=== PATIENT | female | born 1970 | race Caucasian/White ===

== ENCOUNTER 2017-03-12 09:00 | Observation (INO) ==
[2017-03-12] MEDS ORDERED: Benzonatate 100 MG CAPSULE PO STA (09:26)
--- NOTE | 2017-03-12 09:26 | Emergency Department Note ---
Disposition Clinical Impression: Acute respiratory failure Qualifiers: Respiratory failure complication: hypoxia Qualified Code(s): J96.01 - Acute respiratory failure with hypoxia Pneumonia Qualifiers: Pneumonia type: due to unspecified organism Laterality: unspecified laterality Lung location: unspecified part of lung Qualified Code(s): J18.9 - Pneumonia, unspecified organism Disposition: Admitted As Inpatient Condition: Good Referrals: Gerard Guy DO [Primary Care Provider] - Forms: ED Satisfaction Letter Time of Disposition: 10:50 (Dr Pinto) URI/Sore Throat HPI - General Chief Complaint: ED Upper Respiratory Infection Stated Complaint: prod cough, fever, chillsl, sweats, sore throat Time Seen by Provider: 03/12/17 09:10 Source: patient Mode of arrival: ambulatory Limitations: no limitations Nursing Notes Reviewed: Yes Vital Signs Reviewed: Yes - History of Present Illness HPI Narrative: 46-year-old female presents to use secondary to increasing shortness of breath for last 3 days. The patient was diagnosed with viral illness and negative for influenza approximately 6 days ago by PCP where she was sent home with oral prednisone. During that time she has been taking [id number] cough and cold medication without improvement. The patient states she has intermittent fever but denies any associated headache, abdominal pain, changes in bowel or bladder habits. Pt Subjective Complaint: fever, cough, nasal congestion Onset (ago): day(s) (8) Duration: gradually worsening Severity: moderate Improves with: other (Improvement with cough and cold medication.) Worsens with: speaking If sputum, description: yellow, green Associated symptoms: Reports: fever, chills, voice changes, rhinorrhea, nasal congestion, cough, shortness of breath. Denies: diaphoresis, headache, sore throat, stiff neck, chest pain, abdominal pain, nausea, vomiting, diarrhea, dysuria, rash, epistaxis, ear pain Treatments prior to arrival: "cold medicine", other healthcare encounter for this problem (Patient was discharged home with prednisone and finished her last dose today.) - Related Data Home Medications Medication Instructions Recorded Confirmed Albuterol Sulfate [Proventil Hfa] 6.7 gm IH Q6H 05/29/15 03/12/17 Furosemide [Lasix] 10 mg PO DAILY 05/29/15 03/12/17 Ibuprofen [Motrin] 600 mg PO Q8HR PRN 05/29/15 03/12/17 Levothyroxine Sodium [Synthroid] 300 mcg PO DAILY 05/29/15 03/12/17 Lisinopril [Zestril] 10 mg PO DAILY 05/29/15 03/12/17 Loratadine [Claritin] 10 mg PO DAILY 05/29/15 03/12/17 Omeprazole [PriLOSEC] 40 mg PO BID 05/29/15 03/12/17 Potassium Chloride [K-Tab ER] 20 meq PO DAILY 05/29/15 03/12/17 Sertraline [Zoloft] 100 mg PO DAILY 05/29/15 03/12/17 Sucralfate [Carafate] 1 gm PO QIDAC 05/29/15 03/12/17 ARIPiprazole [Abilify] 2 mg PO HS 03/12/17 03/12/17 DULoxetine [Cymbalta] 30 mg PO BID 03/12/17 03/12/17 Montelukast [Singulair] 10 mg PO DAILY 03/12/17 03/12/17 [place]-3S/Dha/Epa/Fish Oil [Fish 1 each PO DAILY 03/12/17 03/12/[address] 1,000 mg Softgel] Previous Rx's Medication Instructions Recorded Pnv No.115/Iron Fumarate/FA 2 each PO DAILY #60 tab.chew 05/29/15 [ 19 Chewable Tablet] Allergies Allergy/AdvReac Type Severity Reaction Status Date / Time No Known Allergies Allergy Verified 03/12/17 09:02 All systems ED: reviewed and negative except as stated. URI PMH - Past Medical History Medical history: Reports: hypertension, thyroid disease Psychiatric history: Reports: anxiety, depression, panic disorder - Social History Smoking Status: Current every day smoker Alcohol use: Reports: none Drug use: Reports: none Physical Exam - General Limitations: no limitations General appearance: alert, in no apparent distress - Head Head exam: atraumatic, normocephalic - Eye Eye exam: Present: normal appearance, PERRL, EOMI. Absent: scleral icterus, conjunctival injection - ENT ENT exam: normal exam, normal oropharynx, mucous membranes moist, TM's normal bilaterally - Neck Neck exam: Present: normal inspection, full ROM, trachea midline. Absent: tenderness, meningismus - Chest Chest inspection: Present: normal inspection, symmetric chest wall rise - Expanded Respiratory Exam Location: rhonchi: Lower, decreased breath sounds: Left, Right, Upper, Lower - Cardiovascular Cardiovascular exam: Present: normal rhythm, tachycardia, normal heart sounds. Absent: JVD - Abdominal Exam Abdominal exam: Present: soft, Non-Tender, normal bowel sounds - Extremities Exam Extremities exam: Present: normal inspection, full ROM, normal capillary refill. Absent: tenderness, pedal edema, joint swelling, calf tenderness - Back Exam Back exam: Present: normal inspection, full ROM, tenderness - Neurological Exam Neurological exam: Present: alert, oriented X3 - Psychiatric Psychiatric exam: Present: normal affect, normal mood - Skin Skin exam: Present: warm, dry, intact Course Course Narrative: Dynamic stable except that she was persistently hypoxemic on room air. After giving her 2 DuoNeb treatment she improved to 95% but as she ambulated on room air she went back down to 84%. The patient did not have any chest pain or dizziness. The patient needs to be placed on supplemental oxygen to maintain her sats above 90%. Vital Signs Temperature 97.6 F 03/12/17 09:08 Pulse Rate 105 03/12/17 09:08 Respiratory Rate 20 03/12/17 09:08 Blood Pressure 119/74 03/12/17 09:08 O2 Sat by Pulse Oximetry 83 03/12/17 09:08 Temperature 97.6 F 03/12/17 09:08 Pulse Rate 105 03/12/17 09:08 Respiratory Rate 14 03/12/17 10:42 Blood Pressure 119/74 03/12/17 09:08 O2 Sat by Pulse Oximetry 89 03/12/17 10:42 Oxygen Delivery Oxygen Delivery Room Air Upper Respiratory Infection - MDM Narrative Medical decision making narrative: Acute respiratory insufficiency secondary to bilateral pneumonia. The patient will be admitted for inpatient treatment with IV antibiotics and further pulmonary toileting. There is no clinical suspicion for PE or ACS based on history and physical examination. The patient and spouse are amenable with current disposition and plan. - Differential Diagnosis Differential Diagnosis: Likely: bronchitis, pneumonia - Medical Records Medical records reviewed: Yes I reviewed the patient's medical records. - Lab Data Lab results reviewed: Yes I reviewed the patient's lab results. Result diagrams: 03/12/17 09:48 03/12/17 09:48 Lab Results 03/12/17 03/12/17 Range/Units 09:48 09:48 WBC 9.8 (4.3-11.1) K/mcL RBC 5.03 H (3.82-4.97) M/mcL Hgb 13.8 (11.5-15.4) g/dL Hct 42.6 (35.3-44.9) % MCV 84.7 (83.0-100.0) fL MCH 27.4 L (28.0-33.3) pg MCHC 32.4 (31.6-35.5) g/dL RDW 13.8 (11.5-14.5) % Plt Count 248 (140-400) K/mcL MPV 11.3 (9.4-12.4) fL Sodium 137 (136-145) mEq/L Potassium 3.3 L (3.5-5.1) mEq/L Chloride 101 (98-107) mEq/L Carbon Dioxide 28 (23-29) mEq/L BUN 17 (6-20) mg/dL Creatinine 0.69 (0.60-1.20) mg/dL Est GFR ( Amer) > 60 (> 60) Est GFR (Non-Af Amer) > 60 (> 60) BUN/Creatinine Ratio 25 (6-26) Glucose 125 H (70-105) mg/dL Calculated Osmolality 287 (280-300) Calcium 9.3 (8.6-10.3) mg/dL - Radiology Data Radiology results reviewed: Yes I reviewed the patient's radiology results. Critical Care Time Critical Care Time: Yes Total Critical Care Time: 45 Attestation: Critical care performed: Time is exclusive of separately billable procedures. Time includes: direct patient care, patient reassessment, coordination of patient care, interpretation of data (laboratory data, radiology data, and respiratory data), review of patient's medical records, medical consultation and documentation of patient care. Procedures included in critical care time: Procedures excluded from critical care time:
[2017-03-12] MEDS ORDERED: methylPREDNISolone 125 MG/2 ML VIAL IVP STA (09:28)
[2017-03-12] MEDS ORDERED: Ipratropium/Albuterol Neb 3 ML IH ONE (09:28)
[2017-03-12] MEDS ORDERED: Tdap (ADACEL) Vaccine 0.5 ML IM ONE (09:28)
[2017-03-12] MEDS ORDERED: 0.9 % Sodium Chloride 1,000 ML IVC SCH (09:30)
[2017-03-12 10:01] LABS: Hematocrit 42.6 % (35.3-44.9); Hemoglobin 13.8 g/dL (11.5-15.4); Mean Corpuscular HGB Conc 32.4 g/dL (31.6-35.5); Mean Corpuscular Hemoglobin 27.4 pg (28.0-33.3); Mean Corpuscular Volume 84.7 fL (83.0-100.0); Mean Platelet Volume 11.3 fL (9.4-12.4); Platelet Count 248 K/mcL (140-400); Red Blood Count 5.03 M/mcL (3.82-4.97); Red Cell Distribution Width 13.8 % (11.5-14.5)
[2017-03-12 10:15] LABS: BUN/Creatinine Ratio 25 (6-26); Blood Urea Nitrogen 17 mg/dL (6-20); Calcium 9.3 mg/dL (8.6-10.3); Carbon Dioxide 28 mEq/L (23-29); Chloride 101 mEq/L (98-107); Glucose 125 mg/dL (70-105); Osmolality,Calculated 287 (280-300); Potassium 3.3 mEq/L (3.5-5.1); Sodium 137 mEq/L (136-145); eGFR For African Americans > 60 (> 60); eGFR For Non-African Americans > 60 (> 60)
[2017-03-12] MEDS ORDERED: Azithromycin 500 MG in D5% in Water 250 ML IVPB ONE (10:25)
[2017-03-12] MEDS ORDERED: Levalbuterol Neb 1.25 MG/3 ML IH STA (10:31)
[2017-03-12] MEDS ORDERED: Ondansetron 4 MG/2 ML VIAL IVP PRN (11:55)
[2017-03-12] MEDS ORDERED: *HR* HYDROcodone/Acet 5/325 mg TABLET PO PRN (11:55)
[2017-03-12] MEDS ORDERED: Acetaminophen 325 MG TABLET PO PRN (11:55)
[2017-03-12] MEDS ORDERED: Naloxone 0.4 MG/ML INJ IVP PRN (11:55)
[2017-03-12] MEDS ORDERED: *HR* HYDROmorphone (PF) 1 MG/ML SYRINGE IVP PRN (11:55)
[2017-03-12] MEDS: Sucralfate 1 GM TABLET PO SCH ×3 (15:33→20:45)
[2017-03-12] MEDS: 0.9 % Sodium Chloride 1,000 ML IVC SCH ×2 (15:33→23:47)
--- NOTE | 2017-03-12 19:06 | Internal Med History&Physical ---
Date of Encounter: 03/12/17 Time of Encounter: 18:30 Assessment and Plan (1) Pneumonia Current visit: Yes Status: Acute She was given Rocephin and Zithromax in the emergency room. These will be continued with lactobacillus. Qualifiers: Pneumonia type: due to unspecified organism Laterality: unspecified laterality Lung location: unspecified part of lung Qualified Code(s): J18.9 - Pneumonia, unspecified organism (2) Hypertension Current visit: Yes Status: Chronic Blood pressure is borderline low at this time. We will hold lisinopril and Lasix. Qualifiers: Hypertension type: essential hypertension Qualified Code(s): I10 - Essential (primary) hypertension (3) Hypothyroidism Current visit: Yes Status: Acute We will check TSH in a.m. Qualifiers: Hypothyroidism type: unspecified Qualified Code(s): E03.9 - Hypothyroidism , unspecified (4) Hypokalemia Current visit: Yes Status: Acute We will give supplemental potassium and check labs in a.m. Internal Medicine - H&P: HPI Chief complaint: Cough and dyspnea Admitted From: Emergency Dept Plans for Post Hospital Care: Home History of present illness: Ms. Mckeon is a 46 year old female who came to emergency room stating she had onset of dyspnea approximately 10 days ago. It worsened approximately 4 days ago and she went to an urgent care in [place] and was diagnosed with viral infection. She was given prednisone and also took OTC antitussive agents. She continued to cough and produce yellow sputum and had occasional hemoptysis. She came to emergency room and was evaluated and found to have bilateral pneumonia on chest x-ray. She was admitted to [facility] floor for ongoing care needs. Respiratory history is significant for having smoked since age 24 up to 1 pack per day. She claims she has been diagnosed with COPD but has not had PFTs. She does not use home oxygen. She has not been tested for sleep apnea. Past Med Surg Social Fam HX - Past Medical History Medical history: hypertension, thyroid disease Psychiatric history: anxiety, depression, panic disorder - Social History Smoking Status: Current every day smoker Smokeless Tobacco Status: No Alcohol use: none Drug use: none Internal Medicine - H&P: Meds Albuterol Sulfate [Proventil Hfa] 6.7 gm IH Q6H 05/29/15 [History] Furosemide [Lasix] 10 mg PO DAILY 05/29/15 [History] Ibuprofen [Motrin] 600 mg PO Q8HR PRN 05/29/15 [History] Levothyroxine Sodium [Synthroid] 300 mcg PO DAILY 05/29/15 [History] Lisinopril [Zestril] 10 mg PO DAILY 05/29/15 [History] Loratadine [Claritin] 10 mg PO DAILY 05/29/15 [History] Omeprazole [PriLOSEC] 40 mg PO BID 05/29/15 [History] Pnv No.115/Iron Fumarate/FA [ 19 Chewable Tablet] 2 each PO DAILY #60 tab.chew 05/29/15 [Rx] Potassium Chloride [K-Tab ER] 20 meq PO DAILY 05/29/15 [History] Sertraline [Zoloft] 100 mg PO DAILY 05/29/15 [History] Sucralfate [Carafate] 1 gm PO QIDAC 05/29/15 [History] ARIPiprazole [Abilify] 2 mg PO HS 03/12/17 [History] DULoxetine [Cymbalta] 30 mg PO BID 03/12/17 [History] Montelukast [Singulair] 10 mg PO DAILY 03/12/17 [History] [place]-3S/Dha/Epa/Fish Oil [Fish Oil Dr 1,000 mg Softgel] 1 each PO DAILY [History] 3 Allergy/AdvReac Type Severity Reaction Status Date / Time No Known Allergies Allergy Verified 03/12/17 09:02 All Systems PM: A 10-system review of systems was performed and is negative for pertinent findings except as documented above in the HPI. Review of systems: General: She states her weight has fluctuated in the past year 50 pounds based on her thyroid dosage adjustment Cardiovascular: She has history of hypertension but denies [place] heart failure angina DVT or pulmonary embolus Respiratory: As per history of present illness GI: She was diagnosed with hepatitis C in 2009. She has not received treatment. She denies other disorders of her liver gallbladder or exocrine pancreas : She denies hematuria or dysuria or kidney stones Neurologic: She denies large distribution strokes or seizures. Endocrine: She has history of goiter and hypothyroidism. She denies diabetes or hyperlipidemia Hematology/oncology: She denies blood disorders or cancers. She states she has had anemia in the past and was prescribed iron therapy Psychiatric: She has anxiety, bipolar disorder, and schizophrenia Muscular skeletal: She has chronic low back pain and right hip pain. She denies gout or other bone joint or muscle disorders. - Constitutional Vitals: Temp Pulse Resp BP Pulse Ox 97.6 F 82 16 118/70 88 03/12/17 09:08 03/12/17 11:42 03/12/17 15:55 03/12/17 12:20 03/12/17 15:55 Exam: Gen.: She is a well-developed overweight female resting comfortably in bed who appears in minimal distress at present time HEENT: Head is atraumatic and normocephalic. Eyes: EOMI. There is no scleral icterus. Mouth: Mucosa is moist. Neck: Supple and nontender. There is no thyromegaly or adenopathy noted. Heart: Regular without murmurs gallops or Lungs: No wheezes or crackles are heard. Abdomen: Soft and nontender. No masses or guarding are noted. Extremities: There is no cyanosis edema or clubbing noted. Dorsalis pedis and posttibial pulses are 1-2 over 2 bilaterally. Neurologic: Mental status: She is talkative and a good historian. Cranial nerves: Smile is symmetric. Forehead wrinkles bilaterally. Tongue protrudes midline. EOMI. Motor: There is no pronator drift. Cerebellar: Finger to nose is intact bilaterally. Skin: Warm and dry Internal Med - H&P Results - Labs CBC & Chem 7: 03/12/17 09:48 03/12/17 09:48
[2017-03-12] MEDS: ARIPiprazole 2 MG TABLET PO SCH (20:45)
[2017-03-13] MEDS: Sucralfate 1 GM TABLET PO SCH ×5 (05:18→22:20)
[2017-03-13] MEDS: Furosemide 20 MG TABLET PO SCH (08:42)
--- NOTE | 2017-03-13 10:16 | Internal Med Progress Note ---
Date of Encounter: 03/13/17 Time of Encounter: 10:05 - Assessment and plan (1) Pneumonia Current Visit: Yes Status: Acute Assessment and plan: March 13. Continue Rocephin, Zithromax, and lactobacillus. Possible discharge home tomorrow if stable. Qualifiers: Pneumonia type: due to unspecified organism Laterality: unspecified laterality Lung location: unspecified part of lung Qualified Code(s): J18.9 - Pneumonia, unspecified organism (2) Hypertension Current Visit: Yes Status: Chronic Assessment and plan: March 13. Continue to hold lisinopril and Lasix. Qualifiers: Hypertension type: essential hypertension Qualified Code(s): I10 - Essential (primary) hypertension (3) Hypothyroidism Current Visit: Yes Status: Acute Assessment and plan: March 13. Continue present dose Synthroid. Await TSH result. Qualifiers: Hypothyroidism type: unspecified Qualified Code(s): E03.9 - Hypothyroidism , unspecified (4) Hypokalemia Current Visit: Yes Status: Acute Assessment and plan: March 13. Oral potassium has been ordered. Will monitor labs - Subjective Interval history: March 13. She has no new complaints - Constitutional Vitals: Temp Pulse Resp BP Pulse Ox 98.7 F 56 18 120/77 93 03/13/17 06:51 03/13/17 06:51 03/13/17 09:44 03/13/17 06:51 03/13/17 09:44 Exam: She is resting comfortably in bed and appears in no acute distress. Her affect is bright and cheerful. Lungs show no wheezes crackles or egophony. Heart is regular without murmurs gallops or ectopics. I reviewed her medications and ordered labs. Internal Medicine: Result - Labs CBC & Chem 7: 03/12/17 09:48 03/12/17 09:48 Consult Discharge Plan - Plan Referrals: Gerard Guy DO [Primary Care Provider] - 1 week
[2017-03-13 10:39] LABS: Basophils % 0.4 %; Hematocrit 39.8 % (35.3-44.9); Immature Granulocytes % 1.1 % (0-4); Lymphocytes # 2.2 K/mcL (0.6-4.6); Lymphocytes % 20.5 %; Mean Corpuscular HGB Conc 32.7 g/dL (31.6-35.5); Mean Corpuscular Hemoglobin 27.7 pg (28.0-33.3); Mean Corpuscular Volume 84.9 fL (83.0-100.0); Mean Platelet Volume 11.5 fL (9.4-12.4); Monocytes # 0.5 K/mcL (0.0-1.3); Monocytes % 5.1 %; Neutrophils # 7.7 K/mcL (1.6-8.9); Platelet Count 240 K/mcL (140-400); Red Blood Count 4.69 M/mcL (3.82-4.97); Segmented Neutrophils % 72.9 %
[2017-03-13 10:56] LABS: BUN/Creatinine Ratio 23 (6-26); Blood Urea Nitrogen 14 mg/dL (6-20); Calcium 8.8 mg/dL (8.6-10.3); Carbon Dioxide 28 mEq/L (23-29); Chloride 106 mEq/L (98-107); Glucose 141 mg/dL (70-105); Magnesium 1.9 mg/dL (1.6-2.6); Osmolality,Calculated 293 (280-300); Potassium 3.6 mEq/L (3.5-5.1); Sodium 140 mEq/L (136-145); eGFR For African Americans > 60 (> 60); eGFR For Non-African Americans > 60 (> 60)
[2017-03-13 12:32] LABS: Platelet Estimate Normal (Normal)
[2017-03-13] MEDS: Benzonatate 100 MG CAPSULE PO PRN ×2 (17:37→20:12)
[2017-03-13] MEDS: ARIPiprazole 2 MG TABLET PO SCH (20:12)
[2017-03-14] MEDS: 0.9 % Sodium Chloride 1,000 ML IVC SCH (04:21)
[2017-03-14 07:43] VITALS: BP 116/64
[2017-03-14] MEDS: Furosemide 20 MG TABLET PO SCH (08:52)
[2017-03-14] MEDS: Sucralfate 1 GM TABLET PO SCH ×2 (08:53→12:11)
[2017-03-14] MEDS: Benzonatate 100 MG CAPSULE PO PRN (09:02)
--- NOTE | 2017-03-14 11:00 | Discharge Summary ---
Date of Encounter: 03/14/17 Time of Encounter: 10:45 - Discharge Diagnosis (1) Pneumonia Priority: Primary Status: Acute Qualifiers: Pneumonia type: due to unspecified organism Laterality: unspecified laterality Lung location: unspecified part of lung Qualified Code(s): J18.9 - Pneumonia, unspecified organism (2) Hypertension Priority: Secondary Status: Chronic Qualifiers: Hypertension type: essential hypertension Qualified Code(s): I10 - Essential (primary) hypertension (3) Hypothyroidism Priority: Secondary Status: Acute Qualifiers: Hypothyroidism type: unspecified Qualified Code(s): E03.9 - Hypothyroidism , unspecified (4) Hypokalemia Priority: Secondary Status: Acute - Discharge Medications Prescriptions: Cefuroxime PO [Ceftin] 500 mg PO Q12HR #6 tablet Azithromycin [Zithromax] 250 mg PO DAILY #3 tablet Lactobacillus [Culturelle] 1 each PO BID #6 cap.sprink Home Medications: Albuterol Sulfate [Proventil Hfa] 6.7 gm IH Q6H 05/29/15 [History] Furosemide [Lasix] 10 mg PO DAILY 05/29/15 [History] Ibuprofen [Motrin] 600 mg PO Q8HR PRN 05/29/15 [History] Loratadine [Claritin] 10 mg PO DAILY 05/29/15 [History] Omeprazole [PriLOSEC] 40 mg PO BID 05/29/15 [History] Pnv No.115/Iron Fumarate/FA [ 19 Chewable Tablet] 2 each PO DAILY #60 tab.chew 05/29/15 [Rx] Sertraline [Zoloft] 100 mg PO DAILY 05/29/15 [History] Sucralfate [Carafate] 1 gm PO QIDAC 05/29/15 [History] ARIPiprazole [Abilify] 2 mg PO HS 03/12/17 [History] DULoxetine [Cymbalta] 30 mg PO BID 03/12/17 [History] Montelukast [Singulair] 10 mg PO DAILY 03/12/17 [History] [place]-3S/Dha/Epa/Fish Oil [Fish Oil Dr 1,000 mg Softgel] 1 each PO DAILY [History] Azithromycin [Zithromax] 250 mg PO DAILY #3 tablet 03/14/17 [Rx] Cefuroxime PO [Ceftin] 500 mg PO Q12HR #6 tablet 03/14/17 [Rx] Lactobacillus [Culturelle] 1 each PO BID #6 cap.sprink 03/14/17 [Rx] Levothyroxine Sodium [Synthroid] 300 mcg PO DAILY #0 03/14/17 [Rx] Potassium Chloride [K-Tab ER] 20 meq PO BID #0 03/14/17 [Rx] Allergies/Adverse Reactions: 3 Allergy/AdvReac Type Severity Reaction Status Date / Time No Known Allergies Allergy Verified 03/12/17 09:02 Date of admission: 03/12/17 11:30 Primary care physician: Gerard Guy DO - Patient Status Disposition: Home, Self-Care Condition: Good Functional capacity at discharge: independent ambulation Overall status at discharge: patient is progressing back to baseline - Discharge Instructions Follow Up With: Gerard Guy DO [Primary Care Provider] - 1 week - Diet and Activity Activity: resume usual activities as tolerated Diet: advance to your usual diet Hospital course: Ms. Mckeon is a 46 year old female who came to emergency room stating she had onset of dyspnea approximately 10 days ago. It worsened approximately 4 days ago and she went to an urgent care in [place] and was diagnosed with viral infection. She was given prednisone and also took OTC antitussive agents. She continued to cough and produce yellow sputum and had occasional hemoptysis. She came to emergency room and was evaluated and found to have bilateral pneumonia on chest x-ray. She was admitted to [facility] floor for ongoing care needs. Initial orders were written by the emergency room physician. I saw her on March 12 and performed the history and physical. She was started on Rocephin and Zithromax in the emergency room. I added lactobacillus. She had clinical improvement with WBC normal at 10.5 and no left shift seen on labs March 13. She will continue antibiotic and probiotic for 3 additional days at discharge. Potassium level was low at 3.3 on admission. Her potassium chloride dose was increased to 20 mEq bid and she will contiinue at this higher dose at discharge. Her PCP can monitor labs. TSH returned suppressed at 0.036. She will decrease her Synthroid dose to 300/ 150 g every other day alternating. Her PCP can monitor TSH as needed. Blood pressure on admission was borderline low. Lisinopril was discontinued and she will remain off this at discharge. Room air oximetry will be checked prior to discharge home. I encouraged her to remain a nonsmoker. She will follow with her PCP Dr. Guy within 1 week. - Time Spent with Patient Total time spent providing and/or coordinating discharge services: - Constitutional Vitals: Temp Pulse Resp BP Pulse Ox 99.8 F H 65 18 116/64 93 03/14/17 06:35 03/14/17 06:35 03/14/17 09:32 03/14/17 06:35 03/14/17 09:32
== END 2017-03-14 15:00 | disposition home or self-care (01) ==
LOC: EMEROOPIK 09:00 → INPPIK 09:00
PROVIDERS: ADMIT Internal Medicine; ATTEND Internal Medicine